=== PATIENT | male | born 1945 | race Caucasian/White ===

== ENCOUNTER 2016-06-27 18:56 | Emergency (ER) | payer BC ==
[~2016-06-27] VITALS: Ht 181.6 cm; Wt 102.0 kg
[2016-06-27 18:58] VITALS: BP 142/74; PULSE 74; RESP 16; TEMP 98.2; O2SAT 97
== END 2016-06-27 21:33 | disposition left against medical advice (07) ==
LOC: NED 18:56
DX: R68.89 Other general symptoms and signs (principal)
CPT/HCPCS: 99281; 99283